=== PATIENT | male | born 1985 | race Two or more races ===

== ENCOUNTER 2019-12-31 15:48 | Emergency (ER) | payer SELFPAY ==
[~2019-12-31] VITALS: Ht 188 cm; Wt 100.0 kg
[2019-12-31 15:50] VITALS: BP 125/67
--- NOTE | 2019-12-31 16:16 | PHYS DOC ---
Adult General Chief Complaint Chief Complaint: CHEST WALL PAIN HPI HPI Patient is a 34 year old male who presents with chest pain for the last 4 months off and on. Patient states at times when he takes a deep breath he will get the left chest pain right below the nipple or he can just be sitting and get the sharp chest pain. He denies shortness of air, smoking, vaping, nausea, vomiting, headache, dizziness, abdominal pain, syncope, weakness, numbness or tingling. Review of Systems Review of Systems Cardiovascular: Left chest pain All other systems were reviewed and found to be within normal limits, except as documented in this note. Allergies Allergies Allergies Coded Allergies Type Severity Reaction Last Updated Verified No Known Drug Allergies 12/31/19 No Physical Exam Physical Exam Constitutional: Well developed, well nourished, no acute distress, non-toxic appearance. [] HENT: Normocephalic, atraumatic, bilateral external ears normal, oropharynx moist, no oral exudates, nose normal. [] Eyes: PERRLA, EOMI, conjunctiva normal, no discharge. [] Neck: Normal range of motion, no tenderness, supple, no stridor. [] Cardiovascular:Heart rate regular rhythm, no murmur [] Lungs & Thorax: Bilateral breath sounds clear to auscultation [] Abdomen: Bowel sounds normal, soft, no tenderness, no masses, no pulsatile masses. [] Skin: Warm, dry, no erythema, no rash. [] Back: No tenderness, no CVA tenderness. [] Extremities: No tenderness, no cyanosis, no clubbing, ROM intact, no edema. [] Neurologic: Alert and oriented X 3, normal motor function, normal sensory function, no focal deficits noted. [] Psychologic: Affect normal, judgement normal, mood normal. Normal Physical Exam[] Current Patient Data Vital Signs Vital Signs Date Time Temp Pulse Resp B/P (MAP) Pulse Ox O2 Delivery O2 Flow Rate FiO2 12/31/19 15:50 98.0 80 16 125/67 (86) 100 Room Air 98.0 Lab Values Laboratory Tests Test 12/31/19 16:30 12/31/19 17:07 White Blood Count 8.9 x10^3/uL (4.0-11.0) Red Blood Count 4.55 x10^6/uL (4.30-5.70) Hemoglobin 13.8 g/dL (13.0-17.5) Hematocrit 40.6 % (39.0-53.0) Mean Corpuscular Volume 89 fL (79-100) Mean Corpuscular Hemoglobin 30 pg (25-35) Mean Corpuscular Hemoglobin Concent 34 g/dL (31-37) Red Cell Distribution Width 13.1 % (11.5-14.5) Platelet Count 268 x10^3/uL (140-400) Neutrophils (%) (Auto) 50 % (31-73) Lymphocytes (%) (Auto) 42 % (24-48) Monocytes (%) (Auto) 7 % (0-9) Eosinophils (%) (Auto) 2 % (0-3) Basophils (%) (Auto) 1 % (0-3) Neutrophils # (Auto) 4.4 x10^3/uL (1.8-7.7) Lymphocytes # (Auto) 3.7 x10^3/uL (1.0-4.8) Monocytes # (Auto) 0.6 x10^3/uL (0.0-1.1) Eosinophils # (Auto) 0.1 x10^3/uL (0.0-0.7) Basophils # (Auto) 0.1 x10^3/uL (0.0-0.2) Prothrombin Time 13.3 SEC (11.7-14.0) Prothrombin Time INR 1.0 (0.8-1.1) D-Dimer (Kelle) < 0.27 ug/mlFEU Sodium Level 141 mmol/L (136-145) Potassium Level 3.4 mmol/L (3.5-5.1) L Chloride Level 104 mmol/L (98-107) Carbon Dioxide Level 25 mmol/L (21-32) Anion Gap 12 (6-14) Blood Urea Nitrogen 15 mg/dL (8-26) Creatinine 1.1 mg/dL (0.7-1.3) Estimated GFR (Cockcroft-Gault) 77.1 BUN/Creatinine Ratio 14 (6-20) Glucose Level 93 mg/dL (70-99) Calcium Level 9.3 mg/dL (8.5-10.1) Total Bilirubin 0.4 mg/dL (0.2-1.0) Aspartate Amino Transferase (AST) 35 U/L (15-37) Alanine Aminotransferase (ALT) 66 U/L (16-63) H Alkaline Phosphatase 65 U/L (46-116) Troponin I Quantitative < 0.017 ng/mL (0.000-0.055) VA-Vqk-D-Type Natriuretic Peptide 29 pg/mL (0-124) Total Protein 7.7 g/dL (6.4-8.2) Albumin 4.1 g/dL (3.4-5.0) Albumin/Globulin Ratio 1.1 (1.0-1.7) Urine Opiates Screen Neg (NEG) Urine Methadone Screen Neg (NEG) Urine Barbiturates Neg (NEG) Urine Phencyclidine Screen Neg (NEG) Urine Amphetamine/Methamphetamine Neg (NEG) Urine Benzodiazepines Screen Neg (NEG) Urine Cocaine Screen Neg (NEG) Urine Cannabinoids Screen Neg (NEG) Urine Ethyl Alcohol Neg (NEG) Laboratory Tests 12/31/19 16:30 Laboratory Tests 12/31/19 16:30 EKG EKG Sinus Rhythm with non specific changes, no STEMI Interpretation Time: [address] Stein Radiology/Procedures Radiology/Procedures [] Impressions: [facility] [address] [place] [address] IMAGING REPORT Signed PATIENT: CJ SCALES ACCOUNT: [id number] : 1985 LOCATION: ER AGE: 34 SEX: M EXAM STATUS: PRE ER ORD. PHYSICIAN: DENISE LEDBETTER APRN REASON: chest pain PROCEDURE: CHEST PA & LATERAL PA and lateral chest. HISTORY: Chest pain PA and lateral views were taken of the chest. Lungs are clear. Heart is normal in size. There is no pleural effusion. IMPRESSION: 1. No acute chest disease. Electronically signed by: Satya Barbosa MD (12/31/2019 4:48 PM) [id number] DICTATED and SIGNED BY: SATYA BARBOSA MD DATE: 12/31/19 1648 Course & Med Decision Making Course & Med Decision Making Pertinent Labs and Imaging studies reviewed. (See chart for details) No pain in the left arm. Chest pain is nonreproducible with palpation. Patient states that at times if he tries to sit up or twist that the pain will be reproduced. Abdomen soft and nontender. EKG shows some nonspecific ST-T changes but otherwise sinus rhythm and no STEMI. Vital signs within normal limits. Patient states when he was rather had asthma rather than that he has no other medical history. Alert and oriented. Speaks in full clear sentences. Ambulatory with a steady gait. Skin pink warm and dry. No peripheral edema. No calf tenderness. 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 Chest x-ray unremarkable. Blood work unremarkable. D-dimer negative. Patient discharged with chest wall pain. [] Dragon Disclaimer Dragon Disclaimer This electronic medical record was generated, in whole or in part, using a voice recognition dictation system. Departure Departure Impression: Primary Impression: Chest pain, atypical Disposition: 01 HOME, SELF-CARE Condition: STABLE Referrals: NNEKA PEGUERO MD Patient Instructions: Chest Pain (Nonspecific), [id number], Chest Wall Pain, [id number] Additional Instructions: Follow-up with primary care provider. If you began having Severe shortness of breath or chest pain that is continuous come back to the emergency room. Scripts Ibuprofen (IBUPROFEN) 600 Mg Tablet 600 MG PO PRN Q6HRS PRN for INFLAMMATION, #20 TAB Prov: DENISE LEDBETTER SAWMILL TALLY CLERK 12/31/19 Orphenadrine Citrate (ORPHENADRINE CITRATE) 100 Mg Tablet.er 1 TAB PO BID, #20 TAB Prov: DENISE LEDBETTER SAWMILL TALLY CLERK 12/31/19 DENISE LEDBETTER SAWMILL TALLY CLERK Dec 31, 2019 16:16
--- NOTE | 2019-12-31 16:38 | EKG ---
[facility] [address] [place] [address] Test Date: 2019-12-31 Test Time: 15:57:52 Pat Name: CJ SCALES Department: Room: Gender: M [employer]: OMEGA : 1985 Requested By: DENISE LEDBETTER Order Number: [id number] Reading MD: Measurements Intervals [place] Rate: 74 P: 41 FL: 162 QRS: 52 QRSD: 100 T: 44 QT: 350 QTc: 393 Interpretive Statements SINUS RHYTHM INCOMPLETE RIGHT BUNDLE BRANCH BLOCK NON SPECIFIC ST-T ABNORMALITY (ELEVATION) OTHERWISE NORMAL ECG No previous ECG available for comparison
[2019-12-31 16:39] LABS: BASO # 0.1 x10^3/uL (0.0-0.2); BASO % 1 % (0-3); EOS # 0.1 x10^3/uL (0.0-0.7); EOS % 2 % (0-3); HEMATOCRIT 40.6 % (39.0-53.0); HEMOGLOBIN 13.8 g/dL (13.0-17.5); LYMPH # 3.7 x10^3/uL (1.0-4.8); LYMPH % 42 % (24-48); MEAN CORPUSCULAR HEMOGLOBIN 30 pg (25-35); MEAN CORPUSCULAR HGB CONC 34 g/dL (31-37); MEAN CORPUSCULAR VOLUME 89 fL (79-100); MONO # 0.6 x10^3/uL (0.0-1.1); MONO % 7 % (0-9); NEUT # 4.4 x10^3/uL (1.8-7.7); NEUT % 50 % (31-73); PLATELET COUNT 268 x10^3/uL (140-400); RED BLOOD COUNT 4.55 x10^6/uL (4.30-5.70); RED CELL DISTRIBUTION WIDTH 13.1 % (11.5-14.5); WHITE BLOOD COUNT 8.9 x10^3/uL (4.0-11.0)
[2019-12-31 16:50] LABS: CALCIUM 9.3 mg/dL (8.5-10.1); CREATININE 1.1 mg/dL (0.7-1.3); GFR 77.1; POTASSIUM 3.4 mmol/L (3.5-5.1)
--- NOTE | 2019-12-31 16:51 | RAD ---
PA and lateral chest. HISTORY: Chest pain PA and lateral views were taken of the chest. Lungs are clear. Heart is normal in size. There is no pleural effusion. IMPRESSION: 1. No acute chest disease. Electronically signed by: Satya Barbosa MD (12/31/2019 4:48 PM) [id number]
[2019-12-31 16:52] LABS: PROTHROMBIN TIME PATIENT 13.3 SEC (11.7-14.0)
[2019-12-31 16:55] LABS: ALBUMIN 4.1 g/dL (3.4-5.0); ALBUMIN/GLOBULIN RATIO 1.1 (1.0-1.7); TOTAL BILIRUBIN 0.4 mg/dL (0.2-1.0); TOTAL PROTEIN 7.7 g/dL (6.4-8.2)
[2019-12-31 17:02] LABS: D-DIMER < 0.27 ug/mlFEU (0.00-0.50)
[2019-12-31] MEDS ORDERED: ORPH100T PO (17:20)
[2019-12-31] MEDS ORDERED: IBUP-1007 PO (17:20)
[2019-12-31 17:24] LABS: BARBITURATES NEG (NEG); BENZODIAZEPINES NEG (NEG); CANNABINOIDS NEG (NEG); COCAINE NEG (NEG); METHADONE NEG (NEG); OPIATES NEG (NEG); PHENCYCLIDINE NEG (NEG)
[2019-12-31 17:27] LABS: AMPHETAMINE/METHAMPHETAMINE NEG (NEG)
== END 2019-12-31 17:43 | disposition home or self-care (01) ==
LOC: ER 15:48
DX: R07.89 Other chest pain (principal)
CPT/HCPCS: 36415; 71046; 80053; 80307; 83880; 84484; 85025; 85379; 85610; 93005; 99285